=== PATIENT | female | born 1985 | race Caucasian/White ===

== ENCOUNTER 2021-03-20 07:00 | Inpatient (IN) | payer OTHER ==
[2021-03-20] MEDS ORDERED: ELECTROLYTE-148 SOLN 1,000 ML IV SCH (07:30)
[2021-03-20] MEDS ORDERED: AMPICILLIN - 2 GM in SODIUM CHLORIDE 100 ML IVPB ONE ×2 (08:50→10:19)
[2021-03-20] MEDS ORDERED: AMPICILLIN SODIUM 2 GM VIAL ONE (08:53)
[2021-03-20] MEDS ORDERED: OXYTOCIN 20 UNITS in 0.9% NS 20 UNIT/1,000 ML INFUS.BAG IV ONE ×2 (08:53→14:42)
[2021-03-20 09:19] VITALS: BMI 34.7
[2021-03-20 10:07] LABS: BASO % 0.2 % (0-2.0); EOS % 0.3 % (0-4.5); HEMATOCRIT 30.6 % (32.4-45.2); HEMOGLOBIN 10.1 GM/dL (10.7-15.3); LYMPH % 17.7 % (8-40); MCHC 32.9 g/dl (32.0-36.0); MEAN PLT VOLUME 9.8 fl (7.5-11.1); MONO % 5.6 % (3.8-10.2); NEUT % 76.2 % (42.8-82.8); PLATELET COUNT 135 10^3/uL (134-434); RBC 3.87 M/mm3 (3.60-5.2); RDW 18.7 % (11.6-15.6); WHITE BLOOD COUNT 7.8 K/mm3 (4.0-10.0)
[2021-03-20 10:08] LABS: INR 0.99 (0.83-1.09)
[2021-03-20 10:10] LABS: ACTIVATED PTT 25.1 SECONDS (25.2-36.5)
[2021-03-20 10:22] LABS: BLOOD UREA NITROGEN 7.6 mg/dL (7-18); CALCIUM 7.8 mg/dL (8.5-10.1)
[2021-03-20] MEDS ORDERED: PCA PUMP NR ONE (10:25)
[2021-03-20] MEDS ORDERED: FENTANYL/BUPIVACAINE/NS/PF - PCEA - 50 ML DISP.SYRIN EP ONE (10:25)
[2021-03-20 10:26] LABS: CREATININE 0.3 mg/dL (0.55-1.3)
[2021-03-20] MEDS: FENTANYL/BUPIVACAINE/NS/PF - PCEA - 50 ML DISP.SYRIN EP SCH ×2 (10:50→15:53)
[2021-03-20] MEDS ORDERED: OXYTOCIN 30 UNITS in 0.9% NS 30 UNIT/500 ML INFUS.BAG IVPB SCH (12:15)
[2021-03-20] MEDS ORDERED: AMPICILLIN SODIUM 1 GM VIAL ONE (12:34)
[2021-03-20] MEDS ORDERED: AMPICILLIN - 1 GM in SODIUM CHLORIDE 100 ML IVPB SCH (12:50)
[2021-03-20 13:01] LABS: HIV INTERPRETATION NEGATIVE (NEGATIVE)
[2021-03-20] MEDS ORDERED: METHYLERGONOVINE MALEATE 0.2 MG/1 ML AMP IM PRN (13:29)
[2021-03-20] MEDS ORDERED: BENZOCAINE 20% 57 GM BOTTLE TP PRN (13:29)
[2021-03-20] MEDS ORDERED: WITCH HAZEL 50% (TUCKS) 40 PAD/JAR PAD TP PRN (13:29)
[2021-03-20] MEDS ORDERED: ACETAMINOPHEN 325 MG TABLET (FP) PO PRN (13:29)
[2021-03-20] MEDS ORDERED: BENZOCAINE 28 GM HEMORRHOIDAL OINTMENT TP PRN (13:29)
[2021-03-20] MEDS ORDERED: BISACODYL 10 MG SUPP.RECT RC PRN (13:29)
[2021-03-20] MEDS ORDERED: OXYTOCIN 20 UNITS in 0.9% NS 20 UNIT/1,000 ML INFUS.BAG IV SCH (13:30)
[2021-03-20] MEDS ORDERED: NALOXONE HCL 0.4 MG/ML VIAL IVPUSH PRN (15:28)
[2021-03-20] MEDS: IBUPROFEN 600 MG TABLET (FP) PO PRN (15:57)
[2021-03-21] MEDS: IBUPROFEN 600 MG TABLET (FP) PO PRN ×2 (06:25→15:32)
[2021-03-21 10:16] LABS: BASO % 0.4 % (0-2.0); EOS % 0.9 % (0-4.5); HEMATOCRIT 25.2 % (32.4-45.2); HEMOGLOBIN 8.4 GM/dL (10.7-15.3); LYMPH % 26.5 % (8-40); MCH 26.7 pg (25.7-33.7); MCHC 33.3 g/dl (32.0-36.0); MEAN CELL VOLUME 80.2 fl (80-96); MEAN PLT VOLUME 9.3 fl (7.5-11.1); MONO % 5.2 % (3.8-10.2); PLATELET COUNT 121 10^3/uL (134-434); RBC 3.14 M/mm3 (3.60-5.2); WHITE BLOOD COUNT 8.1 K/mm3 (4.0-10.0)
[2021-03-21 10:46] LABS: ALBUMIN 1.8 g/dl (3.4-5.0)
[2021-03-21 10:49] LABS: CREATININE 0.6 mg/dL (0.55-1.3)
[2021-03-21 11:01] LABS: BILIRUBIN,TOTAL 0.5 mg/dL (0.2-1); CALCIUM 7.5 mg/dL (8.5-10.1); TOT PROT 4.8 g/dl (6.4-8.2)
[2021-03-21] MEDS ORDERED: LEVOTHYROXINE NA 150 MCG TABLET PO ONE (13:15)
[2021-03-21] MEDS ORDERED: SENNOSIDES/DOCUSATE COMBO (SENNA PLUS) TABLET (UD) PO PRN (22:00)
[2021-03-22 10:19] VITALS: BP 128/82; PULSE 76; TEMP 98.3
== END 2021-03-22 13:10 | disposition home or self-care (01) | DRG 560 ==
LOC: JDEL 07:00 → JLDR 08:40 → J3W 14:50
PROVIDERS: ADMIT Specialist; ATTEND Specialist
PROC: 10E0XZZ Delivery of Products of Conception, External Approach (ICD-10-PCS; principal; 2021-03-20)
DX: O99.284 Endocrine, nutritional and metabolic diseases complicating childbirth (principal); O24.92 Unspecified diabetes mellitus in childbirth; E03.9 Hypothyroidism, unspecified; O99.214 Obesity complicating childbirth; E66.9 Obesity, unspecified; Z3A.36 36 weeks gestation of pregnancy; Z37.0 Single live birth; Z79.4 Long term (current) use of insulin
CPT/HCPCS: 36415; 59025; 59409; 80048; 80053; 82962; 84439; 84443; 85025; 85610; 85730; 86780; 86850; 86900; 86901; 87389; C9803; U0003; U0005

== ENCOUNTER 2022-01-21 16:45 | Inpatient (IN) | payer OTHER ==
[2022-01-21] MEDS ORDERED: NIFEdipine 10 MG CAPSULE (FP) PO ONE ×2 (17:40→18:00)
[2022-01-21] MEDS ORDERED: BETAMET ACET/BETAMET NA PH 30 MG/5 ML VIAL IM ONE (17:40)
[2022-01-21] MEDS ORDERED: PENICILLIN G POTASSIUM 20,000,000 (20Mm) UNITS VIAL IVPB ONE (17:40)
[2022-01-21] MEDS ORDERED: ELECTROLYTE-148 SOLN 1,000 ML IV SCH (17:45)
[2022-01-21] MEDS ORDERED: PENICILLIN G POTASSIUM 5,000,000 UNIT in SODIUM CHLORIDE 250 ML IVPB ONE (18:00)
[2022-01-21] MEDS ORDERED: NIFEdipine 10 MG CAPSULE (FP) ONE (18:00)
[2022-01-21 18:14] VITALS: BP 136/89; PULSE 92; TEMP 98; BMI 35.5
[2022-01-21 18:19] LABS: HEMOGLOBIN 9.7 GM/dL (10.7-15.3); PLATELET COUNT 136 10^3/uL (134-434); RDW 18.3 % (11.6-15.6); WHITE BLOOD COUNT 8.2 K/mm3 (4.0-10.0)
[2022-01-21 18:25] LABS: INR 0.97 (0.83-1.09); PROTHROMBIN TIME (PATIENT) 11.1 SEC (9.7-13.0)
[2022-01-21 18:28] LABS: ACTIVATED PTT 26.2 SECONDS (25.2-36.5)
[2022-01-21 18:29] LABS: BASO % 0.2 % (0-2.0); EOS % 0.5 % (0-4.5); LYMPH % 31.5 % (8-40); MCH 24.7 pg (25.7-33.7); MCHC 32.2 g/dl (32.0-36.0); MEAN CELL VOLUME 76.6 fl (80-96); MEAN PLT VOLUME 10.1 fl (7.5-11.1); MONO % 5.9 % (3.8-10.2); NEUT % 61.9 % (42.8-82.8); RBC 3.92 M/mm3 (3.60-5.2)
[2022-01-21 18:46] LABS: CALCIUM 7.9 mg/dL (8.5-10.1)
[2022-01-21 18:47] LABS: BLOOD UREA NITROGEN 9.4 mg/dL (7-18)
[2022-01-21 18:50] LABS: CREATININE 0.5 mg/dL (0.55-1.3)
[2022-01-21 19:12] LABS: SYPHILIS W/ RPR CONF NON-REACTIVE (NONREACTIVE)
[2022-01-21 19:41] LABS: HIV INTERPRETATION NEGATIVE (NEGATIVE)
== END 2022-01-21 18:50 | disposition short-term general hospital (02) | DRG 563 ==
LOC: JLDR 16:45
PROVIDERS: ADMIT Obstetrics & Gynecology; ATTEND Obstetrics & Gynecology
DX: O60.03 Preterm labor without delivery, third trimester (principal); Z3A.33 33 weeks gestation of pregnancy
CPT/HCPCS: 36415; 80048; 85025; 85610; 85730; 86780; 86850; 86900; 86901; 87389; 96372; C9803-CS; U0003; U0005

== ENCOUNTER 2022-03-05 06:19 | Day surgery (SDC) | payer OTHER ==
[2022-02-28 09:20] VITALS: BMI 32.3
[2022-03-05] MEDS ORDERED: PROPOFOL 20 ML ONE (07:23)
[2022-03-05] MEDS ORDERED: BUPIVACAINE HCL/PF 0.5% (5MG/ML) 10 ML VIAL ONE (07:32)
[2022-03-05] MEDS ORDERED: SEVOFLURANE 250 ML BTL ONE (07:36)
[2022-03-05] MEDS ORDERED: LIDOCAINE HCL/PF 2% SDV 5ML VIAL ONE (07:37)
[2022-03-05] MEDS ORDERED: MIDAZOLAM HCL 2 MG/2 ML SINGLE DOSE VIAL ONE (07:40)
[2022-03-05] MEDS ORDERED: ROCURONIUM BROMIDE 50 MG/5 ML SYRINGE ONE (07:40)
[2022-03-05] MEDS ORDERED: oxyCODONE HCL 5 MG TABLET PO PRN (08:12)
[2022-03-05] MEDS ORDERED: ONDANSETRON 4 MG/2 ML VIAL IVPUSH PRN (08:12)
[2022-03-05] MEDS ORDERED: ACETAMINOPHEN 1000 MG/100 ML BAG IVPB ONE (08:13)
[2022-03-05] MEDS ORDERED: LACTATED RINGERS SOLUTION 1,000 ML IV SCH (08:15)
[2022-03-05] MEDS ORDERED: DEXAMETHASONE SOD PHOSPHATE 4 MG/1 ML VIAL ONE (08:33)
[2022-03-05] MEDS ORDERED: ONDANSETRON 4 MG/2 ML VIAL ONE (08:33)
[2022-03-05] MEDS ORDERED: GLYCOPYRROLATE 0.2 MG/1 ML VIAL ONE ×2 (09:03→09:06)
[2022-03-05] MEDS ORDERED: NEOSTIGMINE METHYLSULFATE 0.5 MG/1 ML - 10 ML MDV ONE (09:03)
[2022-03-05] MEDS ORDERED: KETOROLAC TROMETHAMINE 30 MG/1 ML VIAL ONE (09:09)
[2022-03-05] MEDS ORDERED: ACETAMINOPHEN INJECTION 100 ML IVPB ONE (10:15)
[2022-03-05 12:12] VITALS: RESP 18
[2022-03-05 13:07] VITALS: BP 105/58; PULSE 72; TEMP 98.2
== END 2022-03-05 13:20 | disposition home or self-care (01) ==
LOC: JASU-SURG 06:19
PROVIDERS: ATTEND Specialist
PROC: 0UT74ZZ Resection of Bilateral Fallopian Tubes, Percutaneous Endoscopic Approach (ICD-10-PCS; principal; 2022-03-05 09:00)
DX: Z30.2 Encounter for sterilization (principal)
CPT/HCPCS: 81025; 88305-TC; 94760

== ENCOUNTER 2024-01-08 04:16 | Day surgery (SDC) | payer OTHER ==
[2024-01-04 14:53] VITALS: BMI 29.0
[2024-01-08] MEDS ORDERED: BUPIVACAINE HCL/PF 0.25% (2.5MG/ML) 10 ML VIAL ONE ×2 (07:42→08:50)
[2024-01-08] MEDS ORDERED: MIDAZOLAM HCL 2 MG/2 ML SINGLE DOSE VIAL ONE (07:53)
[2024-01-08] MEDS ORDERED: FENTANYL CITRATE/PF 50 MCG/ML VIAL ONE ×3 (07:53→12:29)
[2024-01-08] MEDS ORDERED: PROPOFOL 40 ML ONE (07:53)
[2024-01-08] MEDS ORDERED: ROCURONIUM BROMIDE 50 MG/5 ML SYRINGE ONE ×2 (07:54→08:44)
[2024-01-08] MEDS ORDERED: LIDOCAINE HCL/PF 2% SDV 5ML VIAL ONE (07:55)
[2024-01-08] MEDS ORDERED: SUCCINYLCHOLINE CHLORIDE 200 MG/10 ML SYRINGE ONE (07:55)
[2024-01-08] MEDS: ceFAZolin SODIUM 1 GM VIAL IVPB ONE (08:19)
[2024-01-08] MEDS ORDERED: SUGAMMADEX SODIUM 200 MG/2 ML VIAL ONE (08:29)
[2024-01-08] MEDS ORDERED: ONDANSETRON 4 MG/2 ML VIAL ONE ×2 (08:29→15:47)
[2024-01-08] MEDS ORDERED: DEXAMETHASONE SOD PHOSPHATE 4 MG/1 ML VIAL ONE (08:29)
[2024-01-08] MEDS ORDERED: ACETAMINOPHEN INJECTION 100 ML IVPB ONE ×2 (08:29→15:41)
[2024-01-08] MEDS: BUPIVACAINE HCL/PF 0.25% (2.5MG/ML) 10 ML VIAL IJ ONE ×2 (08:47)
[2024-01-08] MEDS ORDERED: LACTATED RINGERS SOLUTION 1,000 ML IV SCH (11:45)
[2024-01-08] MEDS: ONDANSETRON 4 MG/2 ML VIAL IVPUSH PRN (15:53)
[2024-01-08 16:15] VITALS: BP 116/67; PULSE 96; RESP 18; TEMP 97.8
== END 2024-01-08 16:40 | disposition home or self-care (01) ==
LOC: JASU-SURG 04:16
PROVIDERS: ATTEND Surgery
PROC: 8E0W4CZ Robotic Assisted Procedure of Trunk Region, Percutaneous Endoscopic Approach (ICD-10-PCS; 2024-01-08)
PROC: 0WUF4JZ Supplement Abdominal Wall with Synthetic Substitute, Percutaneous Endoscopic Approach (ICD-10-PCS; principal; 2024-01-08 08:00)
DX: K43.9 Ventral hernia without obstruction or gangrene (principal)
CPT/HCPCS: 49593; S2900; 81025; 86850; 86900; 86901; 94760; C1781; J0131